=== PATIENT | male | born 1990 | race Hispanic/Latino ===

== ENCOUNTER 2019-02-27 18:09 | Emergency (ER) | payer BC, SELFPAY ==
[2019-02-27] MEDS ORDERED: SODIUM CHLORIDE 0.9% 1000ML 1,000 ML IV ONE (18:53)
[2019-02-27] MEDS ORDERED: ONDANSETRON HCL 4 MG/2 ML VIAL ONE (18:53)
[2019-02-27 19:06] LABS: BASOPHILS % (AUTO) 0.4 % (0.0-5.0); HEMATOCRIT 42.2 % (42-54); LYMPHOCYTES % (AUTO) 7.6 % (21.0-51.0); MEAN CORPUSCULAR HEMOGLOBIN 28.6 pg (27.0-33.0); MEAN CORPUSCULAR HGB CONC 34.3 g/dL (32.0-36.0); MEAN CORPUSCULAR VOLUME 83.3 fL (79-99); MONOCYTES % (AUTO) 3.6 % (3.0-13.0); NEUTROPHILS % (AUTO) 88.4 % (40.0-77.0); PLATELET COUNT (AUTO) 393 K/uL (130-400); RED BLOOD CELL COUNT(AUTO) 5.07 MIL/uL (4.50-6.20); RED CELL DISTRIBUTION WIDTH 12.6 % (11.0-15.5); WHITE BLOOD COUNT (AUTO) 18.8 K/uL (4.8-10.8)
[2019-02-27 19:17] LABS: CREATININE 1.1 mg/dL (0.5-1.5); POTASSIUM 3.4 mmol/L (3.5-5.1)
[2019-02-27 19:21] LABS: BILIRUBIN,TOTAL 1.4 mg/dL (0.2-1.0)
[2019-02-27] MEDS ORDERED: FAMOTIDINE/PF 20 MG/2 ML VIAL IV ONE (19:30)
[2019-02-27] MEDS ORDERED: KETOROLAC TROMETHAMINE 30MG/ML ONE (19:30)
[2019-02-27] MEDS ORDERED: KETOROLAC TROMETHAMINE 15MG/ML ONE (19:31)
[2019-02-27 20:26] LABS: APPEARANCE,URINE SLIGHTLY CLOUDY (CLEAR); BILIRUBIN,URINE MODERATE (NEGATIVE); COLOR,URINE ORANGE (YELLOW); GLUCOSE, URINE (UA) 100 mg/dL (NEGATIVE); KETONES,URINE 15 mg/dL (NEGATIVE); LEUKOCYTE ESTERASE ,URINE NEGATIVE (NEGATIVE); NITRATE,URINE POSITIVE (NEGATIVE); OCCULT BLOOD,URINE TRACE-INTACT (NEGATIVE); PH,URINE 6.5 (5.0-8.0); PROTEIN,URINE 100 mg/dL (NEGATIVE); UROBILINOGEN,URINE >=8.0 mg/dL (0.2-1.0)
[2019-02-27 20:34] LABS: AMPHET/METH SCREEN,URINE NEGATIVE (NEGATIVE); BACTERIA,URINE Few /HPF (None Seen); BARBITURATE SCREEN, URINE NEGATIVE (NEGATIVE); BENZODIAZEPINES SCREEN,URINE NEGATIVE (NEGATIVE); CANNABINOID SCREEN,URINE POSITIVE (NEGATIVE); COCAINE SCREEN,URINE NEGATIVE (NEGATIVE); MUCUS,URINE Few LPF (None Seen); OPIATE SCREEN,URINE NEGATIVE (NEGATIVE); PHENCYCLIDINE SCREEN,URINE NEGATIVE (NEGATIVE); SQUAMOUS EPITHELIAL CELL,UR 0-2 /HPF (0-2)
[2019-02-28] MEDS ORDERED: HYDR50CA50 PO (14:33)
[2019-02-28] MEDS ORDERED: QUET50TA PO (14:33)
[2019-02-28] MEDS ORDERED: TRAZ-185 PO (14:33)
== END 2019-02-27 20:45 | disposition home or self-care (01) ==
LOC: EDH 18:09
DX: R10.10 Upper abdominal pain, unspecified (principal); R11.2 Nausea with vomiting, unspecified; F12.90 Cannabis use, unspecified, uncomplicated; Z79.899 Other long term (current) drug therapy; Z90.49 Acquired absence of other specified parts of digestive tract
CPT/HCPCS: 36415; 74176; 76705; 80053; 80305; 81001; 83690; 85025; 96361; 96374; 96375; 99285; J1885; J2405; J3490; J7030

== ENCOUNTER 2019-02-28 09:20 | Inpatient (IN) | payer BC ==
[~2019-02-28] VITALS: Ht 172.7 cm; Wt 83.3 kg
[2019-02-28] MEDS ORDERED: ONDANSETRON HCL 4 MG/2 ML VIAL ONE (10:03)
[2019-02-28] MEDS ORDERED: FAMOTIDINE/PF 20 MG/2 ML VIAL IV ONE (10:03)
[2019-02-28] MEDS ORDERED: SODIUM CHLORIDE 0.9% 1000ML 1,000 ML IV ONE (10:03)
[2019-02-28 10:30] LABS: BASOPHILS % (AUTO) 0.4 % (0.0-5.0); EOSINOPHILS % (AUTO) 0.1 % (0.0-8.0); HEMATOCRIT 38.1 % (42-54); LYMPHOCYTES % (AUTO) 13.8 % (21.0-51.0); MEAN CORPUSCULAR HGB CONC 34.3 g/dL (32.0-36.0); MEAN CORPUSCULAR VOLUME 84.4 fL (79-99); MONOCYTES % (AUTO) 2.9 % (3.0-13.0); NEUTROPHILS % (AUTO) 82.8 % (40.0-77.0); PLATELET COUNT (AUTO) 340 K/uL (130-400); RED BLOOD CELL COUNT(AUTO) 4.52 MIL/uL (4.50-6.20); RED CELL DISTRIBUTION WIDTH 12.4 % (11.0-15.5); WHITE BLOOD COUNT (AUTO) 18.9 K/uL (4.8-10.8)
[2019-02-28 10:44] LABS: INR 1.1 (0.85-1.15); PROTHROMBIN TIME 11.5 SEC (9.6-11.6)
[2019-02-28 10:46] LABS: POTASSIUM 3.1 mmol/L (3.5-5.1)
[2019-02-28 11:08] LABS: APPEARANCE,URINE Clear (CLEAR); BILIRUBIN,URINE Small (NEGATIVE); COLOR,URINE Dark Yellow (YELLOW); GLUCOSE, URINE (UA) Negative (NEGATIVE); KETONES,URINE 15 mg/dL (NEGATIVE); LEUKOCYTE ESTERASE ,URINE Trace (NEGATIVE); NITRATE,URINE Positive (NEGATIVE); OCCULT BLOOD,URINE Trace (NEGATIVE); PROTEIN,URINE POS 1+ mg/dL (NEGATIVE)
[2019-02-28 11:20] LABS: BACTERIA,URINE Few /HPF (None Seen); RBC,URINE 0-1 /HPF (0-1)
[2019-02-28] MEDS ORDERED: IOHEXOL-350 75 ML VIAL IV ONE (11:40)
[2019-02-28] MEDS ORDERED: ACETAMINOPHEN 650 MG SUPPOSITORY RC PRN (11:45)
[2019-02-28] MEDS ORDERED: MORPHINE SULFATE 2 MG/ML 1ML SYG IVP PRN (11:45)
[2019-02-28 11:55] LABS: CHOLESTEROL 139 mg/dL (<200); HDL CHOLESTEROL 39 mg/dL (29-71); LDL DIRECT 101 mg/dL (0-99); TRIGLYCERIDES 59 mg/dL (30-200)
[2019-02-28 12:00] LABS: HEMOGLOBIN A1C 5.5 % (4.0-6.0)
[2019-02-28] MEDS ORDERED: LIDOCAINE HCL-MPF 1% 2ML VIAL IV PRN (12:30)
[2019-02-28 13:15] VITALS: BP 145/88
[2019-02-28] MEDS: CEFTRIAXONE SODIUM 1 GM IV SCH (13:47)
[2019-02-28] MEDS: POTASSIUM CHLORIDE 20MEQ/100ML 100 ML IV PRN ×2 (13:48→18:22)
[2019-02-28] MEDS: ONDANSETRON HCL 4 MG/2 ML VIAL IVP PRN ×2 (13:48→22:40)
[2019-02-28] MEDS: SODIUM CHLORIDE 0.9% 1000ML 1,000 ML IV SCH (13:48)
[2019-02-28 14:18] LABS: AMPHET/METH SCREEN,URINE NEGATIVE (NEGATIVE); BARBITURATE SCREEN, URINE NEGATIVE (NEGATIVE); BENZODIAZEPINES SCREEN,URINE NEGATIVE (NEGATIVE); CANNABINOID SCREEN,URINE POSITIVE (NEGATIVE); COCAINE SCREEN,URINE NEGATIVE (NEGATIVE); OPIATE SCREEN,URINE NEGATIVE (NEGATIVE); PHENCYCLIDINE SCREEN,URINE NEGATIVE (NEGATIVE)
[2019-02-28] MEDS ORDERED: QUET50TA PO (14:33)
[2019-02-28] MEDS ORDERED: HYDR50CA50 PO (14:33)
[2019-02-28] MEDS ORDERED: TRAZ-185 PO (14:33)
[2019-02-28 16:00] VITALS: BP 133/76
[2019-02-28 20:00] VITALS: BP 133/78
[2019-02-28] MEDS: FAMOTIDINE/PF 20 MG/2 ML VIAL IV SCH (22:32)
[2019-02-28] MEDS: KETOROLAC TROMETHAMINE 15MG/ML IV PRN (22:40)
[2019-03-01] VITALS (7 sets, daily range): BP systolic 120–148; BP diastolic 71–91
[2019-03-01] MEDS: SODIUM CHLORIDE 0.9% 1000ML 1,000 ML IV SCH ×6 (00:34→21:09)
[2019-03-01 05:54] LABS: BASOPHILS % (AUTO) 0.4 % (0.0-5.0); EOSINOPHILS % (AUTO) 0.2 % (0.0-8.0); HEMATOCRIT 36.9 % (42-54); LYMPHOCYTES % (AUTO) 8.6 % (21.0-51.0); MEAN CORPUSCULAR HEMOGLOBIN 28.4 pg (27.0-33.0); MEAN CORPUSCULAR HGB CONC 34.1 g/dL (32.0-36.0); MEAN CORPUSCULAR VOLUME 83.2 fL (79-99); MONOCYTES % (AUTO) 2.8 % (3.0-13.0); PLATELET COUNT (AUTO) 365 K/uL (130-400); RED BLOOD CELL COUNT(AUTO) 4.43 MIL/uL (4.50-6.20); RED CELL DISTRIBUTION WIDTH 12.3 % (11.0-15.5); WHITE BLOOD COUNT (AUTO) 14.6 K/uL (4.8-10.8)
[2019-03-01 06:31] LABS: BILIRUBIN,TOTAL 1.3 mg/dL (0.2-1.0); CREATININE 0.8 mg/dL (0.5-1.5); POTASSIUM 3.4 mmol/L (3.5-5.1); THYROID STIMULATING HORMONE 1.3 uIU/mL (0.36-3.74); TOTAL PROTEIN, SERUM 7.6 g/dL (6.0-8.3)
[2019-03-01] MEDS ORDERED: ALPRAZOLAM 1 MG TAB PO PRN (11:15)
[2019-03-01 12:22] LABS: CREATINE KINASE, TOTAL 70 U/L (21-232); MYOGLOBIN 20 ng/mL (10-92); TROPONIN I < 0.04 ng/mL (0.00-0.06)
[2019-03-01] MEDS: DOXYCYCLINE 100MG+NS 250ML 250 ML IV SCH ×2 (12:55→23:54)
[2019-03-01] MEDS: CEFTRIAXONE SODIUM 1 GM IV SCH (12:55)
[2019-03-01] MEDS: FAMOTIDINE/PF 20 MG/2 ML VIAL IV SCH ×2 (12:57→21:14)
[2019-03-01] MEDS: KETOROLAC TROMETHAMINE 15MG/ML IV PRN ×2 (17:33→23:54)
--- NOTE | 2019-03-01 18:41 | NUR ---
D/C PLAN cm spoke to pt regarding d/c planning. Pt is ind[place] and lives with parents. States parents can assist in care if needed. Plan to home. No needs verbalized or identified. CM to f/u. Addendum: 03/01/19 at 1841 by SAVANAH PADILLA CM Amended: Links added.
[2019-03-01] MEDS: HYDROXYZINE HCL 25 MG TABLET PO SCH (21:13)
[2019-03-01] MEDS: QUETIAPINE FUMARATE 25 MG TAB PO SCH (21:14)
[2019-03-01] MEDS: TRAZODONE HCL 50 MG TAB PO SCH (21:14)
[2019-03-01] MEDS: ONDANSETRON HCL 4 MG/2 ML VIAL IVP PRN (23:55)
[2019-03-02 03:00] VITALS: BP 131/81
[2019-03-02] MEDS: SODIUM CHLORIDE 0.9% 1000ML 1,000 ML IV SCH (04:51)
[2019-03-02 06:27] LABS: HEMATOCRIT 34.1 % (42-54); MEAN CORPUSCULAR HEMOGLOBIN 28.7 pg (27.0-33.0); MEAN CORPUSCULAR HGB CONC 34.6 g/dL (32.0-36.0); MEAN CORPUSCULAR VOLUME 82.8 fL (79-99); PLATELET COUNT (AUTO) 353 K/uL (130-400); RED BLOOD CELL COUNT(AUTO) 4.12 MIL/uL (4.50-6.20); RED CELL DISTRIBUTION WIDTH 12.4 % (11.0-15.5); WHITE BLOOD COUNT (AUTO) 13.7 K/uL (4.8-10.8)
[2019-03-02 06:49] LABS: CREATININE 0.7 mg/dL (0.5-1.5); POTASSIUM 3.1 mmol/L (3.5-5.1)
[2019-03-02 07:00] VITALS: BP 137/59
[2019-03-02 08:31] LABS: BAND NEUTROPHILS % (MANUAL) 1 % (0-2); LYMPHOCYTES % (MANUAL) 9 % (22-44); MAN.DIFF COMMENT-IMPRESSION MANUAL DIFFERENTIAL; MONOCYTES % (MANUAL) 1 % (2-9); PLATELET MORPHOLOGY COMMENT ADEQUATE; SEGMENTED NEUTROPHILS % 89 % (40-70)
[2019-03-02] MEDS: FAMOTIDINE/PF 20 MG/2 ML VIAL IV SCH ×2 (10:41→22:45)
[2019-03-02] MEDS: POTASSIUM CHLORIDE 10% ELIXIR 20 MEQ/15 ML UDCUP PO SCH ×2 (10:43→18:47)
[2019-03-02 11:00] VITALS: BP 143/83
[2019-03-02] MEDS: KETOROLAC TROMETHAMINE 15MG/ML IV PRN ×2 (11:03→19:04)
[2019-03-02] MEDS: DOXYCYCLINE 100MG+NS 250ML 250 ML IV SCH ×2 (12:01→23:38)
[2019-03-02] MEDS: ACETAMINOPHEN 325 MG TAB PO PRN ×2 (12:03→23:47)
[2019-03-02 16:00] VITALS: BP 137/91
[2019-03-02] MEDS: CEFTRIAXONE SODIUM 1 GM IV SCH (18:48)
[2019-03-02 20:00] VITALS: BP 145/92
[2019-03-02] MEDS: HYDROXYZINE HCL 25 MG TABLET PO SCH (22:45)
[2019-03-02] MEDS: QUETIAPINE FUMARATE 25 MG TAB PO SCH (22:45)
[2019-03-02] MEDS: TRAZODONE HCL 50 MG TAB PO SCH (22:45)
[2019-03-03] VITALS (7 sets, daily range): BP systolic 124–149; BP diastolic 76–93
[2019-03-03] MEDS: ONDANSETRON HCL 4 MG/2 ML VIAL IVP PRN ×3 (00:32→18:28)
[2019-03-03 01:06] LABS: CREATINE KINASE, TOTAL 70 U/L (21-232); MYOGLOBIN 22 ng/mL (10-92); TROPONIN I < 0.04 ng/mL (0.00-0.06)
--- NOTE | 2019-03-03 01:54 | NUR ---
CALLED [facility]PITAL[facility] REPORTED EKG RESULTS AND CARDIAC ENZYMES. NO NEW ORDERS GIVEN AT THIS TIME. SPOKE WITH ELIEZER KC.
--- NOTE | 2019-03-03 02:14 | NUR ---
FAMILY REPORTS INCREASE COUGH WITH GREEN SPUTUM. PATIENT HAD NOT REPORTED THE SPUTUM PREVIOUSLY. WILL NOTIFY THE MD OF THE PATIENT'S REPORT.
--- NOTE | 2019-03-03 02:37 | NUR ---
TAQU[place]IA NOTIFIED OF COUGH AND SPUTUM T/O FOR CXR AND SPUTUM CULTURES PLACED. INFORMED PATIENT/FAMILY OF ORDERS.
[2019-03-03] MEDS ORDERED: SODIUM CHLORIDE 3% FOR INHALATION 4 ML/AMP VIAL.NEB IH ONE ×2 (03:27→06:35)
[2019-03-03 05:37] LABS: HEMATOCRIT 32.7 % (42-54); MEAN CORPUSCULAR HEMOGLOBIN 28.7 pg (27.0-33.0); MEAN CORPUSCULAR HGB CONC 34.8 g/dL (32.0-36.0); MEAN CORPUSCULAR VOLUME 82.5 fL (79-99); PLATELET COUNT (AUTO) 377 K/uL (130-400); RED BLOOD CELL COUNT(AUTO) 3.97 MIL/uL (4.50-6.20); RED CELL DISTRIBUTION WIDTH 12.4 % (11.0-15.5); WHITE BLOOD COUNT (AUTO) 11.8 K/uL (4.8-10.8)
[2019-03-03 05:51] LABS: ALBUMIN 2.5 g/dL (3.5-5.0); BILIRUBIN,TOTAL 0.8 mg/dL (0.2-1.0); CREATININE 0.6 mg/dL (0.5-1.5); POTASSIUM 3.1 mmol/L (3.5-5.1)
[2019-03-03] MEDS: POTASSIUM CHLORIDE 20MEQ/100ML 100 ML IV PRN (06:44)
[2019-03-03] MEDS: ACETAMINOPHEN 325 MG TAB PO PRN ×2 (06:45→18:33)
[2019-03-03] MEDS: DOXYCYCLINE 100MG+NS 250ML 250 ML IV SCH (11:25)
[2019-03-03] MEDS: FAMOTIDINE/PF 20 MG/2 ML VIAL IV SCH ×2 (11:25→21:04)
[2019-03-03] MEDS: POTASSIUM CHLORIDE 10% ELIXIR 20 MEQ/15 ML UDCUP PO SCH ×2 (11:25→18:21)
[2019-03-03] MEDS: KETOROLAC TROMETHAMINE 15MG/ML IV PRN (11:54)
[2019-03-03] MEDS ORDERED: ZOSYN 3.375GM+NS 50ML 50 ML IV SCH (15:15)
[2019-03-03] MEDS: FLUCONAZOLE 400 MG/NS 200 ML 200 ML IV SCH (18:22)
[2019-03-03] MEDS: ZOSYN 3.375GM+NS 50ML 50 ML IV SCH (21:04)
[2019-03-03] MEDS: SODIUM CHLORIDE 0.9% 1000ML 1,000 ML IV SCH (21:04)
[2019-03-03] MEDS: HYDROXYZINE HCL 25 MG TABLET PO SCH (21:04)
[2019-03-03] MEDS: TRAZODONE HCL 50 MG TAB PO SCH (21:04)
[2019-03-03] MEDS: QUETIAPINE FUMARATE 25 MG TAB PO SCH (21:04)
[2019-03-04] MEDS: DOXYCYCLINE 100MG+NS 250ML 250 ML IV SCH ×3 (00:12→22:28)
[2019-03-04 04:12] VITALS: BP 140/81
[2019-03-04 05:33] LABS: BASOPHILS % (AUTO) 0.3 % (0.0-5.0); EOSINOPHILS % (AUTO) 0.9 % (0.0-8.0); HEMATOCRIT 33.3 % (42-54); MEAN CORPUSCULAR HGB CONC 34.9 g/dL (32.0-36.0); MEAN CORPUSCULAR VOLUME 83.2 fL (79-99); MONOCYTES % (AUTO) 3.2 % (3.0-13.0); NEUTROPHILS % (AUTO) 82.6 % (40.0-77.0); PLATELET COUNT (AUTO) 400 K/uL (130-400); RED CELL DISTRIBUTION WIDTH 12.6 % (11.0-15.5); WHITE BLOOD COUNT (AUTO) 12.4 K/uL (4.8-10.8)
[2019-03-04 05:50] LABS: CRP QUANTITATIVE 329.7 mg/L (0.00-9.0); MAGNESIUM 1.5 mg/dL (1.80-2.40); PHOSPHORUS 3.6 mg/dL (2.5-4.9)
[2019-03-04] MEDS: ZOSYN 3.375GM+NS 50ML 50 ML IV SCH ×3 (06:40→19:59)
[2019-03-04 06:42] LABS: ERYTHROCYTE SEDIMENTATION RATE 95 MM/HR (0-15)
[2019-03-04 08:00] VITALS: BP 130/77
[2019-03-04] MEDS: FAMOTIDINE/PF 20 MG/2 ML VIAL IV SCH ×2 (09:51→20:01)
[2019-03-04] MEDS: KETOROLAC TROMETHAMINE 15MG/ML IV PRN ×2 (09:51→22:41)
[2019-03-04] MEDS: POTASSIUM CHLORIDE 10% ELIXIR 20 MEQ/15 ML UDCUP PO SCH ×2 (09:52→17:29)
[2019-03-04 12:00] VITALS: BP 132/83
[2019-03-04] MEDS ORDERED: IOHEXOL-350 50ML VIAL IV ONE ×2 (15:10→15:31)
[2019-03-04 16:00] VITALS: BP 135/91
--- NOTE | 2019-03-04 16:50 | NUR ---
CT SCAN COMPLETED AND BACK TO ROOM. DENIES ANY DISCOMFORT AND CALL LIGHT IN REACH..
[2019-03-04] MEDS: FLUCONAZOLE 400 MG/NS 200 ML 200 ML IV SCH (17:30)
[2019-03-04] MEDS: SODIUM CHLORIDE 0.9% 1000ML 1,000 ML IV SCH ×2 (17:31→20:50)
[2019-03-04 19:00] VITALS: BP 141/85
[2019-03-04] MEDS: HYDROXYZINE HCL 25 MG TABLET PO SCH (20:02)
[2019-03-04] MEDS: TRAZODONE HCL 50 MG TAB PO SCH (20:02)
[2019-03-04] MEDS: QUETIAPINE FUMARATE 25 MG TAB PO SCH (20:02)
[2019-03-04 23:52] VITALS: BP 124/73
[2019-03-05 04:00] VITALS: BP 118/72
[2019-03-05] MEDS: ZOSYN 3.375GM+NS 50ML 50 ML IV SCH ×3 (04:38→20:16)
[2019-03-05 07:39] LABS: BASOPHILS % (AUTO) 0.5 % (0.0-5.0); EOSINOPHILS % (AUTO) 3.4 % (0.0-8.0); HEMATOCRIT 33.3 % (42-54); LYMPHOCYTES % (AUTO) 29.7 % (21.0-51.0); MEAN CORPUSCULAR HEMOGLOBIN 28.9 pg (27.0-33.0); MEAN CORPUSCULAR HGB CONC 34.7 g/dL (32.0-36.0); MEAN CORPUSCULAR VOLUME 83.2 fL (79-99); MONOCYTES % (AUTO) 4.6 % (3.0-13.0); NEUTROPHILS % (AUTO) 61.8 % (40.0-77.0); PLATELET COUNT (AUTO) 423 K/uL (130-400); RED CELL DISTRIBUTION WIDTH 12.7 % (11.0-15.5); WHITE BLOOD COUNT (AUTO) 8.8 K/uL (4.8-10.8)
[2019-03-05 07:51] LABS: CARBON DIOXIDE 27 mmol/L (21-32); CHLORIDE 106 mmol/L (101-111); CREATININE 0.7 mg/dL (0.5-1.5); GLOMERULAR FILTR. RATE CALC 142 mL/min (>60); GLUCOSE,RANDOM 86 mg/dL (70-105); POTASSIUM 3.5 mmol/L (3.5-5.1); SODIUM SERUM 141 mmol/L (136-145); UREA NITROGEN, BLOOD 12 mg/dL (7-18)
[2019-03-05 08:00] VITALS: BP 121/71
[2019-03-05] MEDS: FAMOTIDINE/PF 20 MG/2 ML VIAL IV SCH ×2 (09:08→20:17)
[2019-03-05] MEDS: POTASSIUM CHLORIDE 10% ELIXIR 20 MEQ/15 ML UDCUP PO SCH ×2 (09:09→10:45)
[2019-03-05] MEDS ORDERED: MAGNESIUM 2GM PREMIX 50ML 50 ML IV PRN (10:45)
[2019-03-05] MEDS: SODIUM CHLORIDE 0.9% 1000ML 1,000 ML IV SCH (11:08)
[2019-03-05 12:00] VITALS: BP 129/82
[2019-03-05] MEDS: DOXYCYCLINE 100MG+NS 250ML 250 ML IV SCH ×2 (12:16→23:36)
--- NOTE | 2019-03-05 15:42 | NUR ---
RDSCREEN - LOS X 5 Pt admitted for Gastroenteritis, UTI. Pt with no known history. Pt on antibiotics due to sepsis, PNA as per EMR. Upon visit, Pt reports improved appetite with PO intake at 100%. Pt states no GI distress at time of visit. LBM 03/03/19. Pt monitored labs: Alb 2.5, Mg 1.50. RD to continue to monitor PO intake and nutrition related lab values. Please notify as nutrition concerns arise. Thank you. Addendum: 03/05/19 at [address] RD Amended: Links added.
[2019-03-05 16:00] VITALS: BP 125/82
[2019-03-05] MEDS: FLUCONAZOLE 400 MG/NS 200 ML 200 ML IV SCH (16:48)
[2019-03-05 19:00] VITALS: BP 140/95
[2019-03-05] MEDS: QUETIAPINE FUMARATE 25 MG TAB PO SCH (20:16)
[2019-03-05] MEDS: TRAZODONE HCL 50 MG TAB PO SCH (20:16)
[2019-03-05] MEDS: HYDROXYZINE HCL 25 MG TABLET PO SCH (20:16)
[2019-03-05 23:00] VITALS: BP 130/77
[2019-03-06] MEDS: SODIUM CHLORIDE 0.9% 1000ML 1,000 ML IV SCH ×2 (00:41→15:44)
[2019-03-06 03:00] VITALS: BP 124/77
[2019-03-06] MEDS: ZOSYN 3.375GM+NS 50ML 50 ML IV SCH ×2 (03:43→12:37)
[2019-03-06 05:26] LABS: BASOPHILS % (AUTO) 0.5 % (0.0-5.0); EOSINOPHILS % (AUTO) 3.4 % (0.0-8.0); HEMATOCRIT 35.2 % (42-54); LYMPHOCYTES % (AUTO) 32.1 % (21.0-51.0); MEAN CORPUSCULAR HEMOGLOBIN 29.1 pg (27.0-33.0); MEAN CORPUSCULAR HGB CONC 34.1 g/dL (32.0-36.0); MEAN CORPUSCULAR VOLUME 85.4 fL (79-99); MONOCYTES % (AUTO) 5.2 % (3.0-13.0); NEUTROPHILS % (AUTO) 58.8 % (40.0-77.0); NUCLEATED RED BLOOD CELLS 0.1 % (0.0-0.19); PLATELET COUNT (AUTO) 472 K/uL (130-400); RED BLOOD CELL COUNT(AUTO) 4.12 MIL/uL (4.50-6.20); RED CELL DISTRIBUTION WIDTH 12.7 % (11.0-15.5); WHITE BLOOD COUNT (AUTO) 8.9 K/uL (4.8-10.8)
[2019-03-06 05:37] LABS: CREATININE 0.7 mg/dL (0.5-1.5); MAGNESIUM 2.2 mg/dL (1.80-2.40); POTASSIUM 3.2 mmol/L (3.5-5.1)
[2019-03-06 08:16] VITALS: BP 109/69
[2019-03-06] MEDS: FAMOTIDINE/PF 20 MG/2 ML VIAL IV SCH (08:33)
[2019-03-06] MEDS: POTASSIUM CHLORIDE 10% ELIXIR 20 MEQ/15 ML UDCUP PO SCH (08:33)
[2019-03-06] MEDS: DOXYCYCLINE 100MG+NS 250ML 250 ML IV SCH (09:38)
[2019-03-06 11:54] VITALS: BP 111/61
[2019-03-06 14:12] LABS: ROCKY MT SPOTTED FEVER IGG <1:64 (Neg:<1:64); TYPHUS FEVER AB IGG <1:64 (Neg:<1:64)
[2019-03-06] MEDS: FLUCONAZOLE 400 MG/NS 200 ML 200 ML IV SCH (14:49)
[2019-03-06] MEDS ORDERED: PNEUMOCOCCAL VACCINE POLYVALENT 0.5 ML/VIAL [PPV] IM ONE (16:30)
[2019-03-06] MEDS ORDERED: FLU VACC QS2019-20 36MOS UP/PF 60 MCG/0.5 ML ML IM SCH (16:45)
--- NOTE | 2019-03-06 17:36 | NUR ---
DISCHARGE INSTRUCTIONS GIVEN. ALL QUESTIONS ANSWERED. PATIENT TO FOLLOW UP WITH PCP AND DR. LIMON. APPT. MADE. IV DISCONTINUED WITH INNER CANNULA INTACT.
== END 2019-03-06 17:30 | disposition home or self-care (01) | DRG 871 ==
LOC: EDH 09:20 → OBSVTOIN 11:53 → EEVIPCON 11:53 → EDHIP 11:53 → INTOOBSV 11:53 → 3DH 13:19
PROVIDERS: ADMIT Internal Medicine; ATTEND Internal Medicine
PROC: 3E0234Z Introduction of Serum, Toxoid and Vaccine into Muscle, Percutaneous Approach (ICD-10-PCS; principal; 2019-02-28)
PROC: 3E02340 Introduction of Influenza Vaccine into Muscle, Percutaneous Approach (ICD-10-PCS; 2019-02-28)
DX: A41.50 Gram-negative sepsis, unspecified (principal); J18.9 Pneumonia, unspecified organism; J96.91 Respiratory failure, unspecified with hypoxia; N39.0 Urinary tract infection, site not specified; A79.9 Rickettsiosis, unspecified; E87.6 Hypokalemia; B34.9 Viral infection, unspecified; E66.9 Obesity, unspecified; F12.10 Cannabis abuse, uncomplicated; F17.290 Nicotine dependence, other tobacco product, uncomplicated; Z68.27 Body mass index [BMI] 27.0-27.9, adult; Z23 Encounter for immunization; Z80.7 Family history of other malignant neoplasms of lymphoid, hematopoietic and related tissues
CPT/HCPCS: 36415; 70482; 71045; 71046; 71260; 74177; 80048; 80053; 80061; 80305; 82150; 82550; 83036; 83605; 83615; 83690; 83735; 83874; 84100; 84145; 84443; 84484; 85025; 85027; 85610; 85651; 85730; 86140; 86606; 86611; 86612; 86635; 86677; 86698; 86701; 86720; 86757; 87040; 87046; 87071; 87088; 87205; 87324; 87390; 87449; 87804; 90732; 93005; 94640; G0008; G0009; G0378; J0696; J1450; J1885; J2405; J2543; J3475; J3480; J3490; J7030; Q2035; Q9967

== ENCOUNTER 2021-10-03 21:21 | Emergency (ER) | payer BC, OTHER ==
[~2021-10-03] VITALS: Ht 175.3 cm; Wt 89.8 kg
[~2021-10-03 21:21] MED LIST: HYDR50CA50 PO; QUET50TA PO; TRAZ-185 PO
[2021-10-03 21:59] LABS: BASOPHILS % (AUTO) 0.2 % (0.0-5.0); EOSINOPHILS % (AUTO) 0.8 % (0.0-8.0); HEMATOCRIT 43.2 % (42-54); LYMPHOCYTES % (AUTO) 17.6 % (21.0-51.0); MEAN CORPUSCULAR HEMOGLOBIN 28.2 pg (27.0-33.0); MEAN CORPUSCULAR HGB CONC 34.5 g/dL (32.0-36.0); MEAN CORPUSCULAR VOLUME 81.7 fL (79-99); MONOCYTES % (AUTO) 7.1 % (3.0-13.0); NEUTROPHILS % (AUTO) 73.9 % (40.0-77.0); PLATELET COUNT (AUTO) 329 K/uL (130-400); RED BLOOD CELL COUNT(AUTO) 5.29 MIL/uL (4.50-6.20); RED CELL DISTRIBUTION WIDTH 13.1 % (11.0-15.5); WHITE BLOOD COUNT (AUTO) 16.2 K/uL (4.8-10.8)
[2021-10-03] MEDS ORDERED: 0.9%NACL 1000ML 1,000 ML IV ONE (22:00)
[2021-10-03 22:12] LABS: CARBON DIOXIDE 25 mmol/L (21-32); CHLORIDE 106 mmol/L (101-111); CREATININE 0.7 mg/dL (0.5-1.5); GLOMERULAR FILTR. RATE CALC 139 mL/min (>60); GLUCOSE,RANDOM 127 mg/dL (70-105); POTASSIUM 3.1 mmol/L (3.5-5.1); SODIUM SERUM 144 mmol/L (136-145); UREA NITROGEN, BLOOD 13 mg/dL (7-18)
[2021-10-03 22:17] LABS: ALANINE AMINOTRANSFERASE 52 U/L (12-78); ALBUMIN 4.2 g/dL (3.5-5.0); ALCOHOL, BLOOD < 3 mg/dL (0-10); ASPARTATE AMINOTRANSFERASE 30 U/L (10-37); BILIRUBIN,TOTAL 1.4 mg/dL (0.2-1.0); TOTAL PROTEIN, SERUM 8.2 g/dL (6.0-8.3)
[2021-10-03 22:29] LABS: ACETAMINOPHEN < 1 mcg/mL (10-29); SALICYLATE < 2.8 mg/dL (2.8-20.0)
[2021-10-03] MEDS ORDERED: KETOROLAC 15MG/ML VIAL (15MG/ML) IV ONE (22:30)
[2021-10-03 22:45] LABS: APPEARANCE,URINE Clear (CLEAR); BILIRUBIN,URINE Negative (NEGATIVE); COLOR,URINE Dark Yellow (YELLOW); GLUCOSE, URINE (UA) Negative (NEGATIVE); KETONES,URINE >=80 mg/dL (NEGATIVE); LEUKOCYTE ESTERASE ,URINE Negative (NEGATIVE); NITRATE,URINE Negative (NEGATIVE); OCCULT BLOOD,URINE Negative (NEGATIVE); PROTEIN,URINE Trace mg/dL (NEGATIVE)
[2021-10-03 22:54] LABS: AMPHET/METH SCREEN,URINE NEGATIVE (NEGATIVE); BARBITURATE SCREEN, URINE NEGATIVE (NEGATIVE); BENZODIAZEPINES SCREEN,URINE POSITIVE (NEGATIVE); CANNABINOID SCREEN,URINE POSITIVE (NEGATIVE); COCAINE SCREEN,URINE POSITIVE (NEGATIVE); OPIATE SCREEN,URINE NEGATIVE (NEGATIVE); PHENCYCLIDINE SCREEN,URINE NEGATIVE (NEGATIVE)
[2021-10-03] MEDS ORDERED: ACET-66 PO (23:19)
[2021-10-03 23:35] VITALS: BP 140/87
== END 2021-10-03 23:36 | disposition home or self-care (01) ==
LOC: EDH 21:21
DX: M54.50 Low back pain, unspecified (principal); E87.6 Hypokalemia; F19.10 Other psychoactive substance abuse, uncomplicated; Z20.822 Contact with and (suspected) exposure to COVID-19; F41.9 Anxiety disorder, unspecified; F32.A Depression, unspecified; F20.9 Schizophrenia, unspecified; F90.9 Attention-deficit hyperactivity disorder, unspecified type; Z79.899 Other long term (current) drug therapy; W19.XXXA Unspecified fall, initial encounter; Y93.89 Activity, other specified; Y92.89 Other specified places as the place of occurrence of the external cause; Y99.8 Other external cause status
CPT/HCPCS: 36415; 72131; 80053; 80305; 81003; 85025; 87635; 93005; 96361; 96374; 99285; C9803; G0481; J1885; J7030

== ENCOUNTER 2023-05-03 07:39 | Day surgery (SDC) | payer OTHER ==
[~2023-05-03] VITALS: Ht 172.7 cm; Wt 86.2 kg
[2023-05-03] VITALS (11 sets, daily range): BP systolic 118–137; BP diastolic 76–99; PULSE 58–89; RESP 12–16
[~2023-05-03 07:39] MED LIST changes: -HYDR50CA50 PO; +MAG-156 PO; -QUET50TA PO; +SUCR1TAB2 PO; -TRAZ-185 PO; +ZOFRAN PO
[2023-05-03] MEDS ORDERED: PROPOFOL 10 MG/ML 20ML VIAL IV ONE ×2 (11:37→11:55)
== END 2023-05-03 12:45 | disposition home or self-care (01) ==
LOC: DAH 07:39 → ENDO 07:39
PROVIDERS: ATTEND Internal Medicine Gastroenterology
DX: R10.13 Epigastric pain (principal); K26.9 Duodenal ulcer, unspecified as acute or chronic, without hemorrhage or perforation; K29.50 Unspecified chronic gastritis without bleeding; K20.90 Esophagitis, unspecified without bleeding; I10 Essential (primary) hypertension; K76.0 Fatty (change of) liver, not elsewhere classified; Z79.899 Other long term (current) drug therapy; Z90.49 Acquired absence of other specified parts of digestive tract; Z98.890 Other specified postprocedural states
CPT/HCPCS: 82941; 36415; 43239; J2704 ×2; A4620; A4215 ×2; A4223; A7002; A4222; A4221; A4663; J7030; A4606; J3490